=== PATIENT | female | born 1935 | race African-American/Black ===

== ENCOUNTER 2021-08-26 11:51 | Inpatient (IN) | payer MEDICARE, MEDICAID ==
[~2021-08-26] VITALS: Ht 162.6 cm; Wt 80.6 kg
[2021-08-26] MEDS ORDERED: SODIUM CHLORIDE 0.9% 1,000 ML IV ONE (12:00)
[2021-08-26] MEDS ORDERED: ONDANSETRON HCL 4 MG/2 ML VIAL ONE (12:48)
[2021-08-26] MEDS ORDERED: ONDANSETRON HCL 4 MG/2 ML VIAL IV ONE (13:00)
[2021-08-26 13:37] LABS: Basophils # (auto) 0 10 ^3/uL (0-0.2); Basophils % (auto) 0.4 % (0.0-2.0); Eosinophils # (auto) 0.1 10 ^3/uL (0-0.8); Monocytes # (auto) 0.4 10 ^3/uL (0-1.3)
[2021-08-26 13:38] LABS: Eosinophils % (auto) 0.9 % (0.0-7.0); Lymphocytes # (auto) 0.8 10 ^3/uL (0.4-5.4); Lymphocytes % (auto) 9.1 % (10.0-50.0); Mean Corpuscular Hemoglobin 28.9 pg (28.0-32.0); Mean Corpuscular Hgb Conc. 32.5 g/dL (32.0-36.0); Mean Corpuscular Volume 88.7 fL (80.0-100.0); Monocytes % (auto) 4.8 % (0.0-12.0); Neutrophils # (auto) 7.4 10 ^3/uL (1.6-8.6); Neutrophils % (auto) 84.8 % (37.0-80.0); Red Blood Cells 2.26 10^6/uL (4.0-5.20); Red Cell Distribution Width 16.5 % (11.8-14.3); White Blood Cell 8.7 10^3/uL (4.4-10.8)
[2021-08-26 14:10] LABS: Hemoglobin 6.5 g/dL (12.2-16.2)
[2021-08-26 14:42] LABS: Urine Bacteria MANY /hpf (None Seen); Urine Blood TRACE /uL (Negative); Urine Hyaline Cast FEW /lpf (0 - 2); Urine Mucus FEW (None Seen); Urine Specific Gravity 1.011 (1.001-1.035); Urine WBC 133 /hpf (0 - 5)
[2021-08-26] MEDS: PANTOPRAZOLE 40 MG/10 ML VIAL INJ IV SCH ×2 (15:24→23:28)
[2021-08-26] MEDS ORDERED: NITROGLYCERIN 0.4 MG SL TAB SL PRN ×2 (15:45→16:00)
[2021-08-26] MEDS ORDERED: MORPHINE SULFATE INJECTION 2 MG/ML SYRG IV PRN ×3 (15:45→16:00)
[2021-08-26] MEDS ORDERED: HYDROcodone-ACET 5/325MG TAB PO PRN (16:00)
[2021-08-26] MEDS ORDERED: ALUM & MAG HYDROX-SIMETH LIQ(MAALOX) 30 ML PO PRN (16:00)
[2021-08-26] MEDS ORDERED: DOCUSATE SOD 100 MG CAP PO PRN (16:00)
[2021-08-26] MEDS ORDERED: LORazepam 0.5 MG TAB PO PRN (16:00)
[2021-08-26] MEDS ORDERED: MEROPENEM 500MG IVPB 50 ML IV ONE (16:00)
[2021-08-26] MEDS: SODIUM CHLORIDE 0.9% 1,000 ML IV SCH (16:00)
[2021-08-26 16:31] LABS: Alcohol, Urine < 3.0 mg/dL (0-10); Amphetamine Screen, Urine NEGATIVE (NEGATIVE); Barbiturate Scree,Urine NEGATIVE (NEGATIVE); Benzodiazephine Screen, Urine NEGATIVE (NEGATIVE); Cannabinoid Screen, Urine NEGATIVE (NEGATIVE); Cocaine Screen, Urine NEGATIVE (NEGATIVE); Opiate Scree,Urine NEGATIVE (NEGATIVE); Phencyclidine Screen, Urine NEGATIVE (NEGATIVE)
[2021-08-26] MEDS: SUCRALFATE 1 GM/10 ML ORAL SUSP PO SCH ×2 (17:14→23:27)
[2021-08-26 18:31] LABS: Albumin 2.1 g/dL (3.4-5.0); Calcium 8.2 mg/dL (8.5-10.1); Potassium 3.7 mmol/L (3.5-5.1)
[2021-08-26 18:36] LABS: BUN/Creatinine Ratio 22.8; Bilirubin, Total 0.2 mg/dL (0.2-1.0)
[2021-08-26 18:38] LABS: INR 1.05 (0.9-1.15)
[2021-08-26] MEDS: ONDANSETRON HCL 4 MG/2 ML VIAL IV PRN (21:17)
[2021-08-27] VITALS (26 sets, daily range): BP systolic 99–157; BP diastolic 47–66
[2021-08-27] MEDS: SUCRALFATE 1 GM/10 ML ORAL SUSP PO SCH ×2 (06:51→11:30)
[2021-08-27] MEDS ORDERED: METO5TAB2 PO (08:07)
[2021-08-27] MEDS ORDERED: BACL10TA PO (08:07)
[2021-08-27] MEDS ORDERED: PANT40T PO (08:07)
[2021-08-27] MEDS ORDERED: AMLO-496 PO (08:07)
[2021-08-27] MEDS ORDERED: CLOP75TA70 PO (08:07)
[2021-08-27] MEDS ORDERED: FURO40TA4 PO (08:07)
[2021-08-27] MEDS ORDERED: ESCI-28 PO (08:07)
[2021-08-27] MEDS ORDERED: POTA-264 (08:07)
[2021-08-27] MEDS ORDERED: LABE100T4 PO (08:07)
[2021-08-27] MEDS ORDERED: ONDA-180 PO (08:07)
[2021-08-27] MEDS ORDERED: DONE1TAB88 PO (08:07)
[2021-08-27] MEDS ORDERED: GABA300C10 PO (08:07)
[2021-08-27] MEDS ORDERED: BUSP5TAB51 PO (08:07)
[2021-08-27 09:07] LABS: Basophils # (auto) 0 10 ^3/uL (0-0.2); Basophils % (auto) 0.6 % (0.0-2.0); Eosinophils # (auto) 0.1 10 ^3/uL (0-0.8); Eosinophils % (auto) 1.4 % (0.0-7.0); Hematocrit 23.5 % (36.0-46.0); Hemoglobin 7.8 g/dL (12.2-16.2); Lymphocytes # (auto) 1.1 10 ^3/uL (0.4-5.4); Lymphocytes % (auto) 14.6 % (10.0-50.0); Mean Corpuscular Hemoglobin 28.8 pg (28.0-32.0); Mean Corpuscular Hgb Conc. 33.3 g/dL (32.0-36.0); Mean Corpuscular Volume 86.5 fL (80.0-100.0); Monocytes # (auto) 0.5 10 ^3/uL (0-1.3); Monocytes % (auto) 6.6 % (0.0-12.0); Neutrophils # (auto) 5.7 10 ^3/uL (1.6-8.6); Neutrophils % (auto) 76.8 % (37.0-80.0); Nucleated Red Blood Cells % 0.1 %; Red Blood Cells 2.71 10^6/uL (4.0-5.20); Red Cell Distribution Width 15.8 % (11.8-14.3); White Blood Cell 7.4 10^3/uL (4.4-10.8)
[2021-08-27] MEDS ORDERED: LIDOCAINE VISCOUS 2% 15ML UD ONE (09:16)
[2021-08-27] MEDS ORDERED: diphenhdrAMINE HCL 50 MG/1 ML VL ONE (09:17)
[2021-08-27] MEDS ORDERED: fentaNYL CITRATE 100 MCG/2 ML VL ONE ×2 (09:17→14:45)
[2021-08-27] MEDS ORDERED: MIDAZOLAM HCL 5 MG/ML-1ML VIAL ONE (09:17)
[2021-08-27 09:27] LABS: Albumin 2.1 g/dL (3.4-5.0); Magnesium 2.5 mg/dL (1.6-2.6); Potassium 3.7 mmol/L (3.5-5.1)
[2021-08-27 09:33] LABS: BUN/Creatinine Ratio 22.2; Bilirubin, Total 0.3 mg/dL (0.2-1.0); Phosphorus 2.7 mg/dL (2.5-4.90); Total Protein 6.5 g/dL (6.4-8.2); Uric Acid 9.8 mg/dL (2.6-6.0)
[2021-08-27] MEDS: PANTOPRAZOLE 40 MG/10 ML VIAL INJ IV SCH ×2 (09:43→22:14)
[2021-08-27] MEDS: SODIUM CHLORIDE 0.9% 1,000 ML IV SCH (09:44)
[2021-08-27] MEDS ORDERED: MEROPENEM 1GM IVPB 100 ML IV SCH (10:00)
[2021-08-27 10:54] LABS: INR 1.05 (0.9-1.15); Partial Thromboplastin Time 26.9 sec (23.6-33.0)
[2021-08-27] MEDS: ONDANSETRON HCL 4 MG/2 ML VIAL IV PRN (11:15)
[2021-08-27] MEDS ORDERED: MIDAZOLAM HCL 2MG/2ML 2ml VIAL (1mg/ml) ONE ×2 (14:46→15:35)
[2021-08-27] MEDS ORDERED: DexAMETHasone SOD PHOS 10MG/1ML VIAL INJ ONE (15:10)
[2021-08-27] MEDS ORDERED: LIDOCAINE HCL 2% TOP JELLY 5ML TOP ONE (15:16)
[2021-08-27] MEDS ORDERED: GLYCOPYRROLATE 0.2 MG/ML 1ML VIAL ONE (15:16)
[2021-08-27] MEDS ORDERED: EPINEPHrine HCL 1 MG/1 ML AMP ONE (15:16)
[2021-08-27] MEDS ORDERED: LIDOCAINE 2%HCL (LOCAL ANESTH.) INJ 20ML MDV ONE (15:16)
[2021-08-27] MEDS ORDERED: PROPOFOL 10 MG/ML 20 ML IV ONE (15:34)
[2021-08-27] MEDS ORDERED: MIDAZOLAM DRIP 50 mg/50mL 50 ML IV ONE (16:01)
[2021-08-27] MEDS: MIDAZOLAM DRIP 50 mg/50mL 50 ML IV SCH (16:14)
[2021-08-27] MEDS ORDERED: CLINDAMYCIN 600MG IV 50 ML IV ONE (16:15)
[2021-08-27] MEDS ORDERED: PIPERACILLIN-TAZOB 3.375GM 100 ML IV ONE (16:15)
[2021-08-27] MEDS ORDERED: PIPERACILLIN-TAZOB 2.25GM 50 ML IV ONE (17:15)
[2021-08-27] MEDS: fentaNYL Drip 2500mCg/250mlNS 250 ML IV SCH (17:46)
[2021-08-27] MEDS ORDERED: PIPERACILLIN-TAZOB 3.375GM 100 ML IV SCH (22:00)
[2021-08-27] MEDS: CLINDAMYCIN 600MG IV 50 ML IV SCH (22:14)
[2021-08-28] VITALS (103 sets, daily range): BP systolic 73–150; BP diastolic 42–77
[2021-08-28] MEDS: SODIUM CHLORIDE 0.9% 1,000 ML IV SCH ×2 (01:32→17:11)
[2021-08-28 04:41] LABS: Hematocrit 25.4 % (36.0-46.0); Red Blood Cells 2.91 10^6/uL (4.0-5.20)
[2021-08-28 04:45] LABS: Hemoglobin 8.3 g/dL (12.2-16.2); Mean Corpuscular Hemoglobin 28.6 pg (28.0-32.0); Mean Corpuscular Hgb Conc. 32.7 g/dL (32.0-36.0); Mean Corpuscular Volume 87.4 fL (80.0-100.0); Red Cell Distribution Width 15.3 % (11.8-14.3); White Blood Cell 14.9 10^3/uL (4.4-10.8)
[2021-08-28 04:58] LABS: Basophils % (manual) 0 (0.0-2.0); Blast Cells 0; Eosinophils % (manual) 0 (0-7); Metamyelocytes % 0; Myelocytes % 0; Promyelocytes % 0; Reactive Lymphocytes 0
[2021-08-28 05:01] LABS: BUN/Creatinine Ratio 19.9; Calcium 7.6 mg/dL (8.5-10.1); Potassium 4.3 mmol/L (3.5-5.1)
[2021-08-28] MEDS: CLINDAMYCIN 600MG IV 50 ML IV SCH (05:38)
[2021-08-28 06:57] LABS: Band Neutrophils % (manual) 55; Lymphocytes % (manual) 4 (10.0-50.0); Monocytes % (manual) 1 (0-12)
[2021-08-28] MEDS: PANTOPRAZOLE 40 MG/10 ML VIAL INJ IV SCH ×2 (09:28→21:50)
[2021-08-28] MEDS: NOREPINEPHRINE 8 MG/250ML KIT 250 ML IV SCH (10:08)
[2021-08-28] MEDS ORDERED: MEROPENEM 1GM IVPB 100 ML IV ONE (11:30)
[2021-08-28] MEDS: MEROPENEM 500MG IVPB 50 ML IV SCH ×2 (11:57→13:57)
[2021-08-28] MEDS ORDERED: DIGOXIN (250MCG/ML) 2 ML AMPULE IV ONE ×2 (13:15)
[2021-08-28] MEDS ORDERED: MEROPENEM 1GM IVPB 100 ML IV SCH (14:00)
[2021-08-28] MEDS: fentaNYL Drip 2500mCg/250mlNS 250 ML IV SCH (16:00)
[2021-08-28] MEDS: MIDAZOLAM DRIP 50 mg/50mL 50 ML IV SCH (16:00)
[2021-08-28] MEDS ORDERED: AMIODARONE HCL 150 MG in D5W 5% 100 ML IV ONE (16:30)
[2021-08-28] MEDS ORDERED: AMIODARONE 450mg/250ml AE 250 ML IV ONE (16:45)
[2021-08-28] MEDS ORDERED: PIPERACILLIN-TAZOB 2.25GM 50 ML IV SCH (17:30)
[2021-08-29] VITALS (97 sets, daily range): BP systolic 88–185; BP diastolic 38–99
[2021-08-29] MEDS: AMIODARONE 450mg/250ml AE 250 ML IV SCH ×4 (02:15→17:15)
[2021-08-29] MEDS: ACETAMINOPHEN 325 MG TAB PO PRN ×2 (03:53→17:11)
[2021-08-29 04:42] LABS: Basophils # (auto) 0 10 ^3/uL (0-0.2); Basophils % (auto) 0.3 % (0.0-2.0); Eosinophils # (auto) 0 10 ^3/uL (0-0.8); Eosinophils % (auto) 0.1 % (0.0-7.0); Hemoglobin 7.2 g/dL (12.2-16.2); Lymphocytes # (auto) 0.6 10 ^3/uL (0.4-5.4); Lymphocytes % (auto) 6.9 % (10.0-50.0); Mean Corpuscular Hemoglobin 28.6 pg (28.0-32.0); Mean Corpuscular Hgb Conc. 32.8 g/dL (32.0-36.0); Mean Corpuscular Volume 87.4 fL (80.0-100.0); Monocytes # (auto) 0.3 10 ^3/uL (0-1.3); Monocytes % (auto) 3.7 % (0.0-12.0); Neutrophils # (auto) 7.7 10 ^3/uL (1.6-8.6); Nucleated Red Blood Cells % 0.1 %; Red Blood Cells 2.52 10^6/uL (4.0-5.20); Red Cell Distribution Width 16.3 % (11.8-14.3); White Blood Cell 8.7 10^3/uL (4.4-10.8)
[2021-08-29 05:07] LABS: Albumin 1.8 g/dL (3.4-5.0); BUN/Creatinine Ratio 19.1; Calcium 7.3 mg/dL (8.5-10.1); Potassium 4.1 mmol/L (3.5-5.1)
[2021-08-29 05:09] LABS: Bilirubin, Total 0.4 mg/dL (0.2-1.0); Total Protein 5.8 g/dL (6.4-8.2)
[2021-08-29] MEDS: SODIUM CHLORIDE 0.9% 1,000 ML IV SCH (08:30)
[2021-08-29] MEDS: NOREPINEPHRINE 8 MG/250ML KIT 250 ML IV SCH (09:45)
[2021-08-29] MEDS: PANTOPRAZOLE 40 MG/10 ML VIAL INJ IV SCH ×2 (09:55→22:10)
[2021-08-29] MEDS: MEROPENEM 500MG IVPB 50 ML IV SCH ×2 (10:33→22:10)
[2021-08-29] MEDS: MIDAZOLAM DRIP 50 mg/50mL 50 ML IV SCH (16:00)
[2021-08-29] MEDS: fentaNYL Drip 2500mCg/250mlNS 250 ML IV SCH ×2 (16:00→22:20)
[2021-08-29] MEDS ORDERED: FLUCONAZOLE 200MG/100ML 100 ML IV ONE (16:30)
[2021-08-29] MEDS ORDERED: MICAFUNGIN SODIUM 100 MG in SODIUM CHL 0.9% 100 ML IV ONE (17:30)
[2021-08-29] MEDS: LEVALBUTEROL HCL 1.25 MG/3 ML NEB NEB SCH (18:23)
[2021-08-29] MEDS: hydrALAZINE HCL 20 MG/ML VL IV PRN (23:30)
[2021-08-30] VITALS (102 sets, daily range): BP systolic 130–189; BP diastolic 24–91
[2021-08-30] MEDS: hydrALAZINE HCL 20 MG/ML VL IV PRN ×2 (00:56→18:31)
[2021-08-30] MEDS: MORPHINE SULFATE INJECTION 2 MG/ML SYRG IV PRN (04:28)
[2021-08-30 05:06] LABS: Basophils # (auto) 0.1 10 ^3/uL (0-0.2); Eosinophils # (auto) 0.1 10 ^3/uL (0-0.8); Lymphocytes # (auto) 0.7 10 ^3/uL (0.4-5.4); Monocytes # (auto) 0.5 10 ^3/uL (0-1.3); Nucleated Red Blood Cells % 0.1 %
[2021-08-30 05:07] LABS: Basophils % (auto) 0.5 % (0.0-2.0); Eosinophils % (auto) 0.8 % (0.0-7.0); Hematocrit 25.6 % (36.0-46.0); Hemoglobin 8.2 g/dL (12.2-16.2); Lymphocytes % (auto) 6.3 % (10.0-50.0); Mean Corpuscular Hemoglobin 28.2 pg (28.0-32.0); Mean Corpuscular Volume 88.2 fL (80.0-100.0); Neutrophils # (auto) 10.5 10 ^3/uL (1.6-8.6); Neutrophils % (auto) 88.4 % (37.0-80.0); Red Cell Distribution Width 16.5 % (11.8-14.3); White Blood Cell 11.9 10^3/uL (4.4-10.8)
[2021-08-30 05:28] LABS: Calcium 8.1 mg/dL (8.5-10.1); Potassium 3.7 mmol/L (3.5-5.1)
[2021-08-30 05:30] LABS: BUN/Creatinine Ratio 21.5
[2021-08-30] MEDS: LEVALBUTEROL HCL 1.25 MG/3 ML NEB NEB SCH ×4 (06:32→18:05)
[2021-08-30] MEDS: NOREPINEPHRINE 8 MG/250ML KIT 250 ML IV SCH (09:45)
[2021-08-30] MEDS: MICAFUNGIN SODIUM 100 MG in SODIUM CHL 0.9% 100 ML IV SCH (09:47)
[2021-08-30] MEDS: MEROPENEM 500MG IVPB 50 ML IV SCH (09:47)
[2021-08-30] MEDS: PANTOPRAZOLE 40 MG/10 ML VIAL INJ IV SCH ×2 (09:48→21:42)
[2021-08-30] MEDS ORDERED: FUROSEMIDE 20 MG/2 ML VIAL IV ONE (11:45)
[2021-08-30] MEDS ORDERED: FUROSEMIDE 20 MG/2 ML VIAL ONE (11:47)
[2021-08-30 14:40] LABS: % Iron Saturation 5.5 % (15-50)
[2021-08-30] MEDS: MIDAZOLAM DRIP 50 mg/50mL 50 ML IV SCH (16:00)
[2021-08-30 16:26] LABS: Urine Bacteria FEW /hpf (None Seen); Urine Blood TRACE /uL (Negative); Urine Mucus FEW (None Seen); Urine WBC 3 /hpf (0 - 5)
[2021-08-30 16:38] LABS: Protein, Urine 115.8 mg/dL (0.0-11.9)
[2021-08-30] MEDS ORDERED: FLUCONAZOLE 200MG/100ML 100 ML IV SCH (18:00)
[2021-08-30] MEDS: MEROPENEM 1GM IVPB 100 ML IV SCH (18:31)
[2021-08-30] MEDS ORDERED: AMIODARONE HCL 150 MG in D5W 5% 100 ML IV ONE (23:15)
[2021-08-30] MEDS ORDERED: AMIODARONE 450mg/250ml AE 250 ML IV SCH (23:30)
[2021-08-30] MEDS ORDERED: AMIODARONE HCL (50 MG/ ML) 3 ML VIAL IV ONE (23:31)
[2021-08-31] VITALS (57 sets, daily range): BP systolic 148–195; BP diastolic 56–94
[2021-08-31 03:50] LABS: Basophils # (auto) 0 10 ^3/uL (0-0.2); Basophils % (auto) 0.5 % (0.0-2.0); Eosinophils # (auto) 0.1 10 ^3/uL (0-0.8); Eosinophils % (auto) 1.3 % (0.0-7.0); Hematocrit 23.9 % (36.0-46.0); Hemoglobin 7.5 g/dL (12.2-16.2); Lymphocytes # (auto) 0.8 10 ^3/uL (0.4-5.4); Lymphocytes % (auto) 11.7 % (10.0-50.0); Mean Corpuscular Hemoglobin 28.3 pg (28.0-32.0); Mean Corpuscular Hgb Conc. 31.5 g/dL (32.0-36.0); Mean Corpuscular Volume 89.7 fL (80.0-100.0); Monocytes # (auto) 0.6 10 ^3/uL (0-1.3); Monocytes % (auto) 9.1 % (0.0-12.0); Neutrophils # (auto) 5.4 10 ^3/uL (1.6-8.6); Neutrophils % (auto) 77.4 % (37.0-80.0); Nucleated Red Blood Cells % 0.1 %; Red Blood Cells 2.67 10^6/uL (4.0-5.20); Red Cell Distribution Width 16.3 % (11.8-14.3); White Blood Cell 6.9 10^3/uL (4.4-10.8)
[2021-08-31 04:12] LABS: BUN/Creatinine Ratio 20.8; Potassium 3.6 mmol/L (3.5-5.1)
[2021-08-31] MEDS ORDERED: AMIODARONE 450mg/250ml AE 250 ML IV SCH (05:30)
[2021-08-31] MEDS: hydrALAZINE HCL 20 MG/ML VL IV PRN ×4 (05:39→23:46)
[2021-08-31] MEDS: NOREPINEPHRINE 8 MG/250ML KIT 250 ML IV SCH (09:45)
[2021-08-31] MEDS: MEROPENEM 1GM IVPB 100 ML IV SCH ×2 (09:58→18:40)
[2021-08-31] MEDS: PANTOPRAZOLE 40 MG/10 ML VIAL INJ IV SCH ×2 (10:39→21:38)
[2021-08-31] MEDS: AMIODARONE HCL 200 MG TAB NG SCH ×2 (10:40→22:00)
[2021-08-31] MEDS: VALSARTAN 80 MG TAB NG SCH (10:40)
[2021-08-31] MEDS: MICAFUNGIN SODIUM 100 MG in SODIUM CHL 0.9% 100 ML IV SCH (11:00)
[2021-08-31 12:18] LABS: Hematocrit 24.3 % (36.0-46.0)
[2021-08-31] MEDS: ONDANSETRON HCL 4 MG/2 ML VIAL IV PRN ×3 (12:26→21:39)
[2021-08-31] MEDS: LEVALBUTEROL HCL 1.25 MG/3 ML NEB NEB SCH ×3 (15:53→18:29)
[2021-08-31] MEDS: fentaNYL Drip 2500mCg/250mlNS 250 ML IV SCH (16:00)
[2021-08-31] MEDS: MIDAZOLAM DRIP 50 mg/50mL 50 ML IV SCH (16:00)
[2021-08-31] MEDS: cloNIDine HCL 0.1 MG TAB PO PRN (16:08)
[2021-08-31 17:22] LABS: Hematocrit 25.4 % (36.0-46.0); Hemoglobin 8.3 g/dL (12.2-16.2)
[2021-08-31 23:24] LABS: Hematocrit 24.7 % (36.0-46.0)
[2021-09-01] VITALS (35 sets, daily range): BP systolic 137–188; BP diastolic 57–86
[2021-09-01] MEDS: InsuLIN REG 1unit/0.01ml Soln (100units/ml) SC SCH
[2021-09-01] MEDS: LEVALBUTEROL HCL 1.25 MG/3 ML NEB NEB SCH ×4 (00:22→19:07)
[2021-09-01 04:02] LABS: Basophils # (auto) 0 10 ^3/uL (0-0.2); Eosinophils # (auto) 0 10 ^3/uL (0-0.8); Monocytes % (auto) 8.4 % (0.0-12.0)
[2021-09-01 04:05] LABS: Basophils % (auto) 0.2 % (0.0-2.0); Eosinophils % (auto) 0.3 % (0.0-7.0); Hematocrit 23.2 % (36.0-46.0); Hemoglobin 7.8 g/dL (12.2-16.2); Lymphocytes # (auto) 0.6 10 ^3/uL (0.4-5.4); Mean Corpuscular Hemoglobin 29.6 pg (28.0-32.0); Mean Corpuscular Hgb Conc. 33.8 g/dL (32.0-36.0); Mean Corpuscular Volume 87.5 fL (80.0-100.0); Monocytes # (auto) 0.7 10 ^3/uL (0-1.3); Neutrophils # (auto) 6.5 10 ^3/uL (1.6-8.6); Neutrophils % (auto) 83.1 % (37.0-80.0); Nucleated Red Blood Cells % 0.1 %; Red Blood Cells 2.65 10^6/uL (4.0-5.20); Red Cell Distribution Width 15.8 % (11.8-14.3); White Blood Cell 7.8 10^3/uL (4.4-10.8)
[2021-09-01 04:25] LABS: Potassium 3.3 mmol/L (3.5-5.1)
[2021-09-01 04:34] LABS: Albumin 2.2 g/dL (3.4-5.0); BUN/Creatinine Ratio 19.7; Bilirubin, Total 0.4 mg/dL (0.2-1.0); Calcium 8.5 mg/dL (8.5-10.1); Total Protein 6.8 g/dL (6.4-8.2)
[2021-09-01] MEDS: MEROPENEM 1GM IVPB 100 ML IV SCH ×2 (06:31→17:34)
[2021-09-01] MEDS: hydrALAZINE HCL 20 MG/ML VL IV PRN ×3 (06:32→17:39)
[2021-09-01] MEDS: ONDANSETRON HCL 4 MG/2 ML VIAL IV PRN (07:36)
[2021-09-01] MEDS: NOREPINEPHRINE 8 MG/250ML KIT 250 ML IV SCH (09:12)
[2021-09-01] MEDS: AMIODARONE HCL 200 MG TAB NG SCH ×2 (09:13→22:00)
[2021-09-01] MEDS: VALSARTAN 80 MG TAB NG SCH (09:13)
[2021-09-01] MEDS: PANTOPRAZOLE 40 MG/10 ML VIAL INJ IV SCH ×2 (09:16→22:00)
[2021-09-01] MEDS ORDERED: LABETALOL HCL 5 MG/ML 4ML SYRINGE IV PRN (09:45)
[2021-09-01] MEDS: POTASSIUM CHL 20MEQ/100ML 100 ML IV SCH ×2 (10:00→14:18)
[2021-09-01] MEDS: MICAFUNGIN SODIUM 100 MG in SODIUM CHL 0.9% 100 ML IV SCH (10:30)
[2021-09-01] MEDS ORDERED: METOCLOPRAMIDE HCL 5MG/ml INJ 2ml VIAL IV ONE (11:45)
[2021-09-01 13:00] LABS: Phosphorus 3.1 mg/dL (2.5-4.90)
[2021-09-01 13:03] LABS: Pre Albumin 6.3 mg/dL (20.0-40.0)
[2021-09-01] MEDS ORDERED: D5W 5% 1,000 ML IV ONE (13:45)
[2021-09-01] MEDS: MIDAZOLAM DRIP 50 mg/50mL 50 ML IV SCH (16:00)
[2021-09-01] MEDS: fentaNYL Drip 2500mCg/250mlNS 250 ML IV SCH (16:00)
[2021-09-01] MEDS: cloNIDine HCL 0.1 MG TAB PO PRN ×2 (16:22→23:54)
[2021-09-01] MEDS ORDERED: AMINO ACID INFUSION IN D10W 1,000 ML IV NR (20:00)
[2021-09-01] MEDS ORDERED: CLINIMIX PER PHARMACY 0 ML IV SCH (20:00)
[2021-09-01] MEDS: METOCLOPRAMIDE HCL 5MG/ml INJ 2ml VIAL IV SCH (22:00)
[2021-09-02] VITALS (23 sets, daily range): BP systolic 155–193; BP diastolic 62–80
[2021-09-02] MEDS ORDERED: DEXTROSE (50%) 50ML SYRG IV SCH
[2021-09-02] MEDS: LEVALBUTEROL HCL 1.25 MG/3 ML NEB NEB SCH ×4 (00:50→18:21)
[2021-09-02 03:56] LABS: Basophils # (auto) 0 10 ^3/uL (0-0.2); Eosinophils # (auto) 0.1 10 ^3/uL (0-0.8); Eosinophils % (auto) 1.3 % (0.0-7.0); Hematocrit 24.8 % (36.0-46.0); Monocytes # (auto) 0.8 10 ^3/uL (0-1.3); Nucleated Red Blood Cells % 0.1 %
[2021-09-02 03:58] LABS: Basophils % (auto) 0.4 % (0.0-2.0); Hemoglobin 7.9 g/dL (12.2-16.2); Lymphocytes # (auto) 1.1 10 ^3/uL (0.4-5.4); Mean Corpuscular Hemoglobin 28.1 pg (28.0-32.0); Mean Corpuscular Hgb Conc. 31.7 g/dL (32.0-36.0); Mean Corpuscular Volume 88.8 fL (80.0-100.0); Monocytes % (auto) 8.6 % (0.0-12.0); Neutrophils % (auto) 77.7 % (37.0-80.0); Red Blood Cells 2.79 10^6/uL (4.0-5.20); Red Cell Distribution Width 16.2 % (11.8-14.3)
[2021-09-02 04:37] LABS: Albumin 2.3 g/dL (3.4-5.0); BUN/Creatinine Ratio 17.7; Calcium 8.7 mg/dL (8.5-10.1); Potassium 3.5 mmol/L (3.5-5.1)
[2021-09-02 04:39] LABS: Bilirubin, Total 0.3 mg/dL (0.2-1.0); Total Protein 6.9 g/dL (6.4-8.2)
[2021-09-02] MEDS: InsuLIN REG 1unit/0.01ml Soln (100units/ml) SC SCH ×3 (06:00→18:00)
[2021-09-02] MEDS: MEROPENEM 1GM IVPB 100 ML IV SCH ×2 (06:00→17:44)
[2021-09-02] MEDS: ACCU-CHEK COMFORT CURVE STRIP VI SCH ×4 (06:22→17:44)
[2021-09-02] MEDS ORDERED: NIFEdipine ER 30 MG TAB PO ONE (08:15)
[2021-09-02] MEDS: AMIODARONE HCL 200 MG TAB NG SCH ×2 (08:45→20:00)
[2021-09-02 09:00] LABS: Magnesium 1.8 mg/dL (1.6-2.6)
[2021-09-02] MEDS: NOREPINEPHRINE 8 MG/250ML KIT 250 ML IV SCH (09:45)
[2021-09-02] MEDS: VALSARTAN 80 MG TAB NG SCH (10:35)
[2021-09-02 10:44] LABS: INR 1.08 (0.9-1.15)
[2021-09-02] MEDS: hydrALAZINE HCL 20 MG/ML VL IV PRN ×2 (11:19→16:29)
[2021-09-02] MEDS: METOCLOPRAMIDE HCL 5MG/ml INJ 2ml VIAL IV SCH (12:04)
[2021-09-02] MEDS: PANTOPRAZOLE 40 MG/10 ML VIAL INJ IV SCH ×2 (12:04→22:22)
[2021-09-02] MEDS: MICAFUNGIN SODIUM 100 MG in SODIUM CHL 0.9% 100 ML IV SCH (12:06)
[2021-09-02] MEDS ORDERED: POTASSIUM PHOSPHATE 44 MEQ in D5W 5% 250 ML IV ONE (12:15)
[2021-09-02] MEDS ORDERED: PANT1INJ3 PO (12:35)
[2021-09-02] MEDS ORDERED: ASCO500T11 PO (12:43)
[2021-09-02] MEDS ORDERED: CHOL400C15 PO (12:43)
[2021-09-02] MEDS ORDERED: GABA-339 PO (12:43)
[2021-09-02] MEDS ORDERED: ZINC220C8 PO (12:43)
[2021-09-02] MEDS ORDERED: MAGN400T28 PO (12:43)
[2021-09-02] MEDS ORDERED: ASPI-543 PO (12:43)
[2021-09-02] MEDS ORDERED: LABE100T4 PO (12:43)
[2021-09-02] MEDS ORDERED: cloNIDine 0.2 mg/24hr 7DAY PATCH TD ONE (12:45)
[2021-09-02] MEDS ORDERED: cloNIDine 0.2 mg/24hr 7DAY PATCH TD SCH (12:45)
[2021-09-02] MEDS ORDERED: ENOXAPARIN SOD 40 MG/0.4 ML SYRINGE SC ONE (12:45)
[2021-09-02] MEDS ORDERED: BISACODYL 10 MG RECT SUPP PR PRN (15:00)
[2021-09-02] MEDS: fentaNYL Drip 2500mCg/250mlNS 250 ML IV SCH (16:00)
[2021-09-03] VITALS (11 sets, daily range): BP systolic 155–177; BP diastolic 67–78
[2021-09-03] MEDS: LEVALBUTEROL HCL 1.25 MG/3 ML NEB NEB SCH ×4 (00:21→19:09)
[2021-09-03 02:43] LABS: Basophils # (auto) 0 10 ^3/uL (0-0.2); Eosinophils # (auto) 0.1 10 ^3/uL (0-0.8); Monocytes # (auto) 0.6 10 ^3/uL (0-1.3); Neutrophils # (auto) 6.6 10 ^3/uL (1.6-8.6); White Blood Cell 8.3 10^3/uL (4.4-10.8)
[2021-09-03 02:45] LABS: Basophils % (auto) 0.4 % (0.0-2.0); Eosinophils % (auto) 1.4 % (0.0-7.0); Hematocrit 23.5 % (36.0-46.0); Hemoglobin 7.5 g/dL (12.2-16.2); Lymphocytes # (auto) 0.9 10 ^3/uL (0.4-5.4); Lymphocytes % (auto) 11.1 % (10.0-50.0); Mean Corpuscular Hemoglobin 27.8 pg (28.0-32.0); Mean Corpuscular Volume 86.7 fL (80.0-100.0); Monocytes % (auto) 7.5 % (0.0-12.0); Neutrophils % (auto) 79.6 % (37.0-80.0); Red Blood Cells 2.71 10^6/uL (4.0-5.20); Red Cell Distribution Width 16.3 % (11.8-14.3)
[2021-09-03 03:04] LABS: BUN/Creatinine Ratio 14.9; Calcium 8.5 mg/dL (8.5-10.1); Potassium 3.6 mmol/L (3.5-5.1)
[2021-09-03] MEDS: MEROPENEM 1GM IVPB 100 ML IV SCH ×2 (06:00→17:34)
[2021-09-03] MEDS: AMIODARONE HCL 200 MG TAB NG SCH ×2 (07:44→20:57)
[2021-09-03] MEDS ORDERED: TPN PER PHARMACY 0 ML IV SCH (10:00)
[2021-09-03 10:38] LABS: Albumin 2.3 g/dL (3.4-5.0); Bilirubin, Direct 0.2 mg/dL (0-0.2)
[2021-09-03 10:45] LABS: Bilirubin, Total 0.4 mg/dL (0.2-1.0); Phosphorus 3.3 mg/dL (2.5-4.90); Pre Albumin 8.7 mg/dL (20.0-40.0); Total Protein 6.8 g/dL (6.4-8.2)
[2021-09-03] MEDS: FLUCONAZOLE 200MG/100ML 100 ML IV SCH (11:33)
[2021-09-03] MEDS: PANTOPRAZOLE 40 MG/10 ML VIAL INJ IV SCH ×2 (11:34→23:42)
[2021-09-03] MEDS: ENOXAPARIN SOD 40 MG/0.4 ML SYRINGE SC SCH (11:35)
[2021-09-03] MEDS: VALSARTAN 80 MG TAB NG SCH (11:36)
[2021-09-03] MEDS: ONDANSETRON HCL 4 MG/2 ML VIAL IV PRN (14:49)
[2021-09-03] MEDS ORDERED: PPN PER PHARMACY IV NR ×7 (20:00)
[2021-09-03] MEDS: hydrALAZINE HCL 20 MG/ML VL IV PRN (21:45)
[2021-09-03] MEDS: ACCU-CHEK COMFORT CURVE STRIP VI SCH (23:42)
[2021-09-03] MEDS: InsuLIN REG 1unit/0.01ml Soln (100units/ml) SC SCH (23:43)
[2021-09-04] MEDS ORDERED: DEXTROSE (50%) 50ML SYRG IV SCH
[2021-09-04] MEDS: LEVALBUTEROL HCL 1.25 MG/3 ML NEB NEB SCH ×5 (00:07→23:50)
[2021-09-04 05:00] VITALS: BP 165/74
[2021-09-04] MEDS: hydrALAZINE HCL 20 MG/ML VL IV PRN (05:28)
[2021-09-04] MEDS: InsuLIN REG 1unit/0.01ml Soln (100units/ml) SC SCH ×3 (06:00→18:00)
[2021-09-04] MEDS: MEROPENEM 1GM IVPB 100 ML IV SCH ×2 (06:22→18:12)
[2021-09-04] MEDS: ACCU-CHEK COMFORT CURVE STRIP VI SCH ×3 (06:23→18:16)
[2021-09-04] MEDS: AMIODARONE HCL 200 MG TAB NG SCH ×2 (08:30→20:44)
[2021-09-04] MEDS: LABETALOL HCL 5 MG/ML 4ML SYRINGE IV PRN ×2 (08:48→18:24)
[2021-09-04 09:00] VITALS: BP 156/77
[2021-09-04] MEDS: PANTOPRAZOLE 40 MG/10 ML VIAL INJ IV SCH ×2 (10:35→23:02)
[2021-09-04] MEDS: VALSARTAN 80 MG TAB NG SCH (10:35)
[2021-09-04] MEDS: ENOXAPARIN SOD 40 MG/0.4 ML SYRINGE SC SCH (10:35)
[2021-09-04] MEDS: FLUCONAZOLE 200MG/100ML 100 ML IV SCH (10:35)
[2021-09-04 12:59] VITALS: BP 162/74
[2021-09-04] MEDS ORDERED: GADOTERATE MEG 7.5 MMOL/15ml INJ (0.5MMOL/ml) IV ONE (15:35)
[2021-09-04 15:52] LABS: Albumin 2.5 g/dL (3.4-5.0); Calcium 9.1 mg/dL (8.5-10.1); Potassium 3.7 mmol/L (3.5-5.1)
[2021-09-04 15:55] LABS: BUN/Creatinine Ratio 20.8; Bilirubin, Total 0.4 mg/dL (0.2-1.0); Phosphorus 3.1 mg/dL (2.5-4.90); Total Protein 7.7 g/dL (6.4-8.2)
[2021-09-04 17:14] VITALS: BP 179/78
[2021-09-04] MEDS ORDERED: PPN PER PHARMACY IV NR ×5 (20:00)
[2021-09-04 22:00] VITALS: BP 152/71
[2021-09-05] MEDS: ACCU-CHEK COMFORT CURVE STRIP VI SCH ×4 (00:08→17:22)
[2021-09-05] MEDS: InsuLIN REG 1unit/0.01ml Soln (100units/ml) SC SCH ×5 (00:20→23:59)
[2021-09-05 05:00] VITALS: BP 151/88
[2021-09-05] MEDS: MEROPENEM 1GM IVPB 100 ML IV SCH ×3 (05:18→17:39)
[2021-09-05 05:26] LABS: Basophils # (auto) 0 10 ^3/uL (0-0.2); Eosinophils # (auto) 0.2 10 ^3/uL (0-0.8); Nucleated Red Blood Cells % 0.1 %
[2021-09-05 05:31] LABS: Basophils % (auto) 0.6 % (0.0-2.0); Hematocrit 24.2 % (36.0-46.0); Hemoglobin 8.1 g/dL (12.2-16.2); Lymphocytes # (auto) 1.1 10 ^3/uL (0.4-5.4); Lymphocytes % (auto) 13.3 % (10.0-50.0); Mean Corpuscular Hemoglobin 28.8 pg (28.0-32.0); Mean Corpuscular Hgb Conc. 33.3 g/dL (32.0-36.0); Mean Corpuscular Volume 86.4 fL (80.0-100.0); Monocytes # (auto) 0.4 10 ^3/uL (0-1.3); Monocytes % (auto) 5.6 % (0.0-12.0); Neutrophils # (auto) 6.3 10 ^3/uL (1.6-8.6); Neutrophils % (auto) 78.5 % (37.0-80.0); Red Cell Distribution Width 15.9 % (11.8-14.3)
[2021-09-05 06:08] LABS: Albumin 2.3 g/dL (3.4-5.0); Potassium 3.5 mmol/L (3.5-5.1)
[2021-09-05 06:12] LABS: Bilirubin, Total 0.3 mg/dL (0.2-1.0); Calcium 8.8 mg/dL (8.5-10.1); Magnesium 2.9 mg/dL (1.6-2.6); Phosphorus 2.8 mg/dL (2.5-4.90); Total Protein 7.2 g/dL (6.4-8.2)
[2021-09-05] MEDS: LEVALBUTEROL HCL 1.25 MG/3 ML NEB NEB SCH ×4 (07:38→23:23)
[2021-09-05 09:00] VITALS: BP 161/65
[2021-09-05] MEDS: AMIODARONE HCL 200 MG TAB NG SCH ×2 (09:26→22:22)
[2021-09-05] MEDS: PANTOPRAZOLE 40 MG/10 ML VIAL INJ IV SCH ×2 (09:27→22:22)
[2021-09-05] MEDS: FLUCONAZOLE 200MG/100ML 100 ML IV SCH (09:27)
[2021-09-05] MEDS: ENOXAPARIN SOD 40 MG/0.4 ML SYRINGE SC SCH (09:28)
[2021-09-05] MEDS: VALSARTAN 80 MG TAB NG SCH (09:28)
[2021-09-05] MEDS ORDERED: cloNIDine 0.3 mg/24hr 7DAY PATCH TD SCH (10:00)
[2021-09-05 13:00] VITALS: BP 167/60
[2021-09-05] MEDS: hydrALAZINE HCL 20 MG/ML VL IV PRN (13:19)
[2021-09-05 15:15] VITALS: BP 142/59
[2021-09-05] MEDS ORDERED: FUROSEMIDE 20 MG/2 ML VIAL IV ONE (16:00)
[2021-09-05 17:00] VITALS: BP 161/60
[2021-09-05] MEDS ORDERED: PPN PER PHARMACY IV NR ×5 (20:00)
[2021-09-05] MEDS: PPN PER PHARMACY IV NR ×5 (21:17)
[2021-09-05 22:08] VITALS: BP 162/71
[2021-09-06 05:49] VITALS: BP 173/75
[2021-09-06] MEDS: ACCU-CHEK COMFORT CURVE STRIP VI SCH ×4 (06:55→17:24)
[2021-09-06] MEDS: MEROPENEM 1GM IVPB 100 ML IV SCH ×2 (06:55→17:24)
[2021-09-06] MEDS: InsuLIN REG 1unit/0.01ml Soln (100units/ml) SC SCH ×3 (06:56→17:23)
[2021-09-06] MEDS: ENOXAPARIN SOD 40 MG/0.4 ML SYRINGE SC SCH (07:44)
[2021-09-06 08:10] LABS: Basophils # (auto) 0.1 10 ^3/uL (0-0.2); Basophils % (auto) 0.8 % (0.0-2.0); Eosinophils # (auto) 0.1 10 ^3/uL (0-0.8); Eosinophils % (auto) 1.2 % (0.0-7.0); Hematocrit 26.9 % (36.0-46.0); Hemoglobin 8.6 g/dL (12.2-16.2); Lymphocytes # (auto) 0.9 10 ^3/uL (0.4-5.4); Lymphocytes % (auto) 11.6 % (10.0-50.0); Mean Corpuscular Hemoglobin 27.5 pg (28.0-32.0); Mean Corpuscular Hgb Conc. 31.9 g/dL (32.0-36.0); Mean Corpuscular Volume 86.3 fL (80.0-100.0); Monocytes # (auto) 0.5 10 ^3/uL (0-1.3); Monocytes % (auto) 6.2 % (0.0-12.0); Neutrophils # (auto) 6.6 10 ^3/uL (1.6-8.6); Neutrophils % (auto) 80.2 % (37.0-80.0); Nucleated Red Blood Cells % 0.1 %; Red Blood Cells 3.12 10^6/uL (4.0-5.20); Red Cell Distribution Width 15.9 % (11.8-14.3); White Blood Cell 8.2 10^3/uL (4.4-10.8)
[2021-09-06] MEDS: LEVALBUTEROL HCL 1.25 MG/3 ML NEB NEB SCH ×5 (08:31→23:23)
[2021-09-06] MEDS: VALSARTAN 80 MG TAB NG SCH (08:31)
[2021-09-06] MEDS: FLUCONAZOLE 200MG/100ML 100 ML IV SCH (08:31)
[2021-09-06] MEDS: PANTOPRAZOLE 40 MG/10 ML VIAL INJ IV SCH (08:31)
[2021-09-06] MEDS: AMIODARONE HCL 200 MG TAB NG SCH (08:32)
[2021-09-06 08:50] LABS: Albumin 2.5 g/dL (3.4-5.0); Calcium 8.8 mg/dL (8.5-10.1); Magnesium 2.7 mg/dL (1.6-2.6)
[2021-09-06 08:53] LABS: BUN/Creatinine Ratio 27.7; Bilirubin, Total 0.4 mg/dL (0.2-1.0); Phosphorus 2.4 mg/dL (2.5-4.90); Total Protein 7.8 g/dL (6.4-8.2)
[2021-09-06 09:00] VITALS: BP 157/76
[2021-09-06] MEDS ORDERED: POTASSIUM CHL 20MEQ/100ML 100 ML IV SCH (10:30)
[2021-09-06] MEDS: POTASSIUM CHL 20MEQ/100ML 100 ML IV SCH ×2 (10:51→12:24)
[2021-09-06 13:00] VITALS: BP 163/71
[2021-09-06] MEDS ORDERED: POTASSIUM PHOSPHATE 11 MEQ in SODIUM CHL 0.9% 100 ML IV ONE (15:00)
[2021-09-06] MEDS: PPN PER PHARMACY IV NR ×5 (19:54)
[2021-09-06] MEDS ORDERED: PPN PER PHARMACY IV NR ×7 (20:00)
[2021-09-06 22:00] VITALS: BP 172/75
[2021-09-07] MEDS: AMIODARONE HCL 200 MG TAB NG SCH (00:22)
[2021-09-07] MEDS: PANTOPRAZOLE 40 MG/10 ML VIAL INJ IV SCH ×2 (00:22→12:19)
[2021-09-07] MEDS: ACCU-CHEK COMFORT CURVE STRIP VI SCH ×4 (00:24→17:52)
[2021-09-07 05:00] VITALS: BP 177/69
[2021-09-07 05:43] LABS: Eosinophils # (auto) 0.1 10 ^3/uL (0-0.8); Eosinophils % (auto) 1.1 % (0.0-7.0); Hemoglobin 8.1 g/dL (12.2-16.2); Neutrophils # (auto) 6.3 10 ^3/uL (1.6-8.6)
[2021-09-07 05:47] LABS: Basophils # (auto) 0.1 10 ^3/uL (0-0.2); Basophils % (auto) 0.7 % (0.0-2.0); Hematocrit 24.8 % (36.0-46.0); Lymphocytes # (auto) 0.8 10 ^3/uL (0.4-5.4); Lymphocytes % (auto) 10.6 % (10.0-50.0); Mean Corpuscular Hgb Conc. 32.7 g/dL (32.0-36.0); Mean Corpuscular Volume 85.5 fL (80.0-100.0); Monocytes # (auto) 0.5 10 ^3/uL (0-1.3); Neutrophils % (auto) 80.6 % (37.0-80.0); Nucleated Red Blood Cells % 0.1 %; White Blood Cell 7.8 10^3/uL (4.4-10.8)
[2021-09-07 05:50] LABS: Albumin 2.2 g/dL (3.4-5.0); Calcium 8.3 mg/dL (8.5-10.1); Magnesium 1.8 mg/dL (1.6-2.6); Potassium 3.6 mmol/L (3.5-5.1)
[2021-09-07 05:53] LABS: Bilirubin, Total 0.3 mg/dL (0.2-1.0); Total Protein 7.2 g/dL (6.4-8.2)
[2021-09-07] MEDS: MEROPENEM 1GM IVPB 100 ML IV SCH ×2 (06:00→17:52)
[2021-09-07] MEDS: InsuLIN REG 1unit/0.01ml Soln (100units/ml) SC SCH ×4 (06:00→18:00)
[2021-09-07] MEDS: LEVALBUTEROL HCL 1.25 MG/3 ML NEB NEB SCH ×3 (07:23→17:50)
[2021-09-07] MEDS ORDERED: BUPIVACAINE W/ EPINEPH 0.25% INJ 50ML MDV ONE (08:27)
[2021-09-07] MEDS ORDERED: fentaNYL CITRATE 100 MCG/2 ML VL ONE (08:35)
[2021-09-07] MEDS ORDERED: LIDOCAINE 1% HCL (LOCAL ANESTH.) INJ 20ML MDV ONE (08:40)
[2021-09-07] MEDS ORDERED: PROPOFOL 10 MG/ML 20 ML IV ONE (09:45)
[2021-09-07] MEDS ORDERED: ONDANSETRON HCL 4 MG/2 ML VIAL ONE (09:45)
[2021-09-07] MEDS: hydrALAZINE HCL 20 MG/ML VL IV PRN (10:10)
[2021-09-07] MEDS ORDERED: hydrALAZINE HCL 20 MG/ML VL IV ONE (10:30)
[2021-09-07] MEDS: FLUCONAZOLE 200MG/100ML 100 ML IV SCH (12:19)
[2021-09-07] MEDS: VALSARTAN 80 MG TAB NG SCH (12:20)
[2021-09-07] MEDS: ENOXAPARIN SOD 40 MG/0.4 ML SYRINGE SC SCH (12:20)
[2021-09-07 13:00] VITALS: BP 171/74
[2021-09-07] MEDS: LABETALOL HCL 5 MG/ML 4ML SYRINGE IV PRN (13:24)
[2021-09-07] MEDS: ONDANSETRON HCL 4 MG/2 ML VIAL IV PRN (13:25)
[2021-09-07] MEDS ORDERED: KETOROLAC TROMETH 30 MG/ML 1ML VIAL IV ONE (16:00)
[2021-09-07 17:00] VITALS: BP 135/80
[2021-09-07] MEDS ORDERED: PPN PER PHARMACY IV NR ×7 (20:00)
[2021-09-07 22:00] VITALS: BP 165/64
[2021-09-08] MEDS: LEVALBUTEROL HCL 1.25 MG/3 ML NEB NEB SCH ×5 (00:13→23:08)
[2021-09-08] MEDS: PANTOPRAZOLE 40 MG/10 ML VIAL INJ IV SCH ×2 (00:47→09:45)
[2021-09-08] MEDS: InsuLIN REG 1unit/0.01ml Soln (100units/ml) SC SCH ×4 (00:59→17:51)
[2021-09-08] MEDS: ACCU-CHEK COMFORT CURVE STRIP VI SCH ×4 (01:03→17:51)
[2021-09-08 05:00] VITALS: BP 174/72
[2021-09-08 05:42] LABS: Albumin 2.1 g/dL (3.4-5.0); BUN/Creatinine Ratio 33.9; Calcium 8.1 mg/dL (8.5-10.1); Magnesium 1.9 mg/dL (1.6-2.6)
[2021-09-08 05:45] LABS: Bilirubin, Total 0.3 mg/dL (0.2-1.0); Phosphorus 3.5 mg/dL (2.5-4.90); Total Protein 6.9 g/dL (6.4-8.2)
[2021-09-08] MEDS: MEROPENEM 1GM IVPB 100 ML IV SCH ×2 (06:26→18:43)
[2021-09-08] MEDS: LABETALOL HCL 5 MG/ML 4ML SYRINGE IV PRN ×2 (07:54→21:04)
[2021-09-08 08:42] LABS: Potassium 3.9 mmol/L (3.5-5.1)
[2021-09-08] MEDS: ENOXAPARIN SOD 40 MG/0.4 ML SYRINGE SC SCH (09:45)
[2021-09-08] MEDS: FLUCONAZOLE 200MG/100ML 100 ML IV SCH (09:45)
[2021-09-08] MEDS: VALSARTAN 80 MG TAB NG SCH (09:46)
[2021-09-08] MEDS: hydrALAZINE HCL 20 MG/ML VL IV PRN (10:49)
[2021-09-08] MEDS: ONDANSETRON HCL 4 MG/2 ML VIAL IV PRN (12:49)
[2021-09-08] MEDS: METOCLOPRAMIDE HCL 5MG/ml INJ 2ml VIAL IV PRN (18:54)
[2021-09-08] MEDS ORDERED: PPN PER PHARMACY IV NR ×7 (20:00)
[2021-09-08] MEDS: ENOXAPARIN SOD 80 MG/0.8ML SYRINGE SC SCH (21:03)
[2021-09-08 22:00] VITALS: BP 182/72
[2021-09-09] MEDS: ACCU-CHEK COMFORT CURVE STRIP VI SCH ×4 (00:20→18:00)
[2021-09-09] MEDS: hydrALAZINE HCL 20 MG/ML VL IV PRN ×2 (00:25→15:19)
[2021-09-09 05:00] VITALS: BP 172/62
[2021-09-09] MEDS: MEROPENEM 1GM IVPB 100 ML IV SCH ×2 (05:53→18:00)
[2021-09-09] MEDS: LABETALOL HCL 5 MG/ML 4ML SYRINGE IV PRN ×3 (05:53→22:00)
[2021-09-09] MEDS: InsuLIN REG 1unit/0.01ml Soln (100units/ml) SC SCH ×4 (05:54→18:00)
[2021-09-09] MEDS: LEVALBUTEROL HCL 1.25 MG/3 ML NEB NEB SCH ×3 (06:03→18:35)
[2021-09-09 06:08] LABS: Albumin 2.3 g/dL (3.4-5.0); Calcium 8.3 mg/dL (8.5-10.1); Magnesium 1.8 mg/dL (1.6-2.6); Phosphorus 3.1 mg/dL (2.5-4.90); Potassium 4.1 mmol/L (3.5-5.1)
[2021-09-09 06:11] LABS: BUN/Creatinine Ratio 42.9; Bilirubin, Total 0.3 mg/dL (0.2-1.0); Total Protein 7.3 g/dL (6.4-8.2)
[2021-09-09 09:00] VITALS: BP 186/70
[2021-09-09] MEDS: ENOXAPARIN SOD 80 MG/0.8ML SYRINGE SC SCH ×2 (10:00→21:09)
[2021-09-09] MEDS: VALSARTAN 80 MG TAB NG SCH (10:00)
[2021-09-09] MEDS: FLUCONAZOLE 200MG/100ML 100 ML IV SCH (10:00)
[2021-09-09] MEDS: PANTOPRAZOLE 40 MG/10 ML VIAL INJ IV SCH (10:00)
[2021-09-09 13:00] VITALS: BP 169/78
[2021-09-09] MEDS: METOCLOPRAMIDE HCL 5MG/ml INJ 2ml VIAL IV PRN (15:15)
[2021-09-09 17:00] VITALS: BP 164/77
[2021-09-09] MEDS ORDERED: TPN PER PHARMACY IV NR ×9 (20:00)
[2021-09-09] MEDS ORDERED: PPN PER PHARMACY IV NR ×9 (20:00)
[2021-09-09 22:00] VITALS: BP 175/69
[2021-09-10] MEDS: ACCU-CHEK COMFORT CURVE STRIP VI SCH ×2 (00:18→06:30)
[2021-09-10] MEDS: LEVALBUTEROL HCL 1.25 MG/3 ML NEB NEB SCH ×4 (00:40→18:28)
[2021-09-10] MEDS: METOCLOPRAMIDE HCL 5MG/ml INJ 2ml VIAL IV PRN ×3 (04:54→23:36)
[2021-09-10 05:17] VITALS: BP 156/68
[2021-09-10 05:58] LABS: Basophils # (auto) 0.1 10 ^3/uL (0-0.2); Eosinophils # (auto) 0.1 10 ^3/uL (0-0.8); Hemoglobin 7.3 g/dL (12.2-16.2); Monocytes # (auto) 0.6 10 ^3/uL (0-1.3); Red Cell Distribution Width 16.1 % (11.8-14.3); White Blood Cell 6.5 10^3/uL (4.4-10.8)
[2021-09-10] MEDS: InsuLIN REG 1unit/0.01ml Soln (100units/ml) SC SCH ×2 (06:00)
[2021-09-10 06:01] LABS: Eosinophils % (auto) 0.9 % (0.0-7.0); Hematocrit 21.9 % (36.0-46.0); Lymphocytes # (auto) 1.1 10 ^3/uL (0.4-5.4); Lymphocytes % (auto) 16.3 % (10.0-50.0); Mean Corpuscular Hemoglobin 28.7 pg (28.0-32.0); Mean Corpuscular Hgb Conc. 33.5 g/dL (32.0-36.0); Mean Corpuscular Volume 85.6 fL (80.0-100.0); Monocytes % (auto) 9.6 % (0.0-12.0); Neutrophils # (auto) 4.7 10 ^3/uL (1.6-8.6); Neutrophils % (auto) 72.2 % (37.0-80.0); Red Blood Cells 2.55 10^6/uL (4.0-5.20)
[2021-09-10 06:09] LABS: Potassium 4.6 mmol/L (3.5-5.1)
[2021-09-10 06:15] LABS: Albumin 2.2 g/dL (3.4-5.0); BUN/Creatinine Ratio 42.9; Bilirubin, Total 0.4 mg/dL (0.2-1.0); Calcium 8.7 mg/dL (8.5-10.1); Phosphorus 3.1 mg/dL (2.5-4.90); Pre Albumin 16.2 mg/dL (20.0-40.0); Total Protein 7.1 g/dL (6.4-8.2)
[2021-09-10] MEDS: MEROPENEM 1GM IVPB 100 ML IV SCH (06:30)
[2021-09-10] MEDS: hydrALAZINE HCL 20 MG/ML VL IV PRN ×2 (06:31→17:10)
[2021-09-10 09:00] VITALS: BP 183/84
[2021-09-10] MEDS: PANTOPRAZOLE 40 MG/10 ML VIAL INJ IV SCH (10:00)
[2021-09-10] MEDS: levoFLOXacin 500MG 100 ML IV SCH (10:00)
[2021-09-10] MEDS: VALSARTAN 80 MG TAB NG SCH (10:00)
[2021-09-10] MEDS ORDERED: Jevity 1.2 Cal/Fiber 1 Liter GT SCH (10:00)
[2021-09-10] MEDS ORDERED: APIXABAN 2.5 MG TAB PO SCH (10:00)
[2021-09-10] MEDS: FLUCONAZOLE 200MG/100ML 100 ML IV SCH (10:00)
[2021-09-10 13:00] VITALS: BP 176/82
[2021-09-10] MEDS: LABETALOL HCL 5 MG/ML 4ML SYRINGE IV PRN ×2 (14:00→23:03)
[2021-09-10 16:34] VITALS: BP 187/82
[2021-09-10 19:00] VITALS: BP 164/77
[2021-09-10] MEDS ORDERED: PPN PER PHARMACY IV NR ×8 (20:00)
[2021-09-10 21:00] VITALS: BP 171/82
[2021-09-10] MEDS: APIXABAN 2.5 MG TAB JT SCH (23:01)
[2021-09-11] MEDS: LEVALBUTEROL HCL 1.25 MG/3 ML NEB NEB SCH ×4 (00:28→21:05)
[2021-09-11] MEDS: LABETALOL HCL 5 MG/ML 4ML SYRINGE IV PRN (06:12)
[2021-09-11 06:45] LABS: Basophils # (auto) 0 10 ^3/uL (0-0.2); Basophils % (auto) 0.5 % (0.0-2.0); Eosinophils # (auto) 0.1 10 ^3/uL (0-0.8); Eosinophils % (auto) 1.2 % (0.0-7.0); Hematocrit 26.8 % (36.0-46.0); Hemoglobin 8.5 g/dL (12.2-16.2); Lymphocytes # (auto) 0.7 10 ^3/uL (0.4-5.4); Lymphocytes % (auto) 10.7 % (10.0-50.0); Mean Corpuscular Hemoglobin 27.4 pg (28.0-32.0); Mean Corpuscular Hgb Conc. 31.7 g/dL (32.0-36.0); Mean Corpuscular Volume 86.4 fL (80.0-100.0); Monocytes # (auto) 0.6 10 ^3/uL (0-1.3); Monocytes % (auto) 9.6 % (0.0-12.0); Neutrophils # (auto) 5.2 10 ^3/uL (1.6-8.6); Nucleated Red Blood Cells % 0.1 %; Red Cell Distribution Width 16.7 % (11.8-14.3); White Blood Cell 6.7 10^3/uL (4.4-10.8)
[2021-09-11 07:01] LABS: Potassium 4.4 mmol/L (3.5-5.1)
[2021-09-11 09:00] VITALS: BP 170/85
[2021-09-11] MEDS: PANTOPRAZOLE 40 MG/10 ML VIAL INJ IV SCH (09:07)
[2021-09-11] MEDS: FLUCONAZOLE 200MG/100ML 100 ML IV SCH (09:07)
[2021-09-11] MEDS: levoFLOXacin 500MG 100 ML IV SCH (09:07)
[2021-09-11] MEDS: VALSARTAN 80 MG TAB NG SCH (09:08)
[2021-09-11] MEDS: APIXABAN 2.5 MG TAB JT SCH ×2 (09:08→22:57)
[2021-09-11] MEDS ORDERED: amLODIPine BESYLATE 5 MG TAB JT SCH (10:00)
[2021-09-11] MEDS ORDERED: LABETALOL HCL 200 MG TAB PO ONE (10:15)
[2021-09-11] MEDS ORDERED: amLODIPine BESYLATE 5 MG TAB PO ONE (10:15)
[2021-09-11] MEDS ORDERED: Jevity 1.2 Cal/Fiber 1 Liter GT SCH (10:15)
[2021-09-11 13:00] VITALS: BP 159/78
[2021-09-11] MEDS: METOCLOPRAMIDE HCL 5MG/ml INJ 2ml VIAL IV PRN (13:57)
[2021-09-11 17:22] VITALS: BP 152/71
[2021-09-11 22:00] VITALS: BP 154/76
[2021-09-11] MEDS ORDERED: busPIRone HCL 10 MG TAB PO SCH (22:00)
[2021-09-11] MEDS ORDERED: busPIRone HCL 10 MG TAB JT SCH (22:00)
[2021-09-11] MEDS ORDERED: LABETALOL HCL 200 MG TAB PO SCH (22:00)
[2021-09-11] MEDS: LABETALOL HCL 200 MG TAB JT SCH (22:56)
[2021-09-12] MEDS: METOCLOPRAMIDE HCL 5MG/ml INJ 2ml VIAL IV PRN (03:04)
[2021-09-12] MEDS: ACETAMINOPHEN 325 MG TAB PO PRN (04:37)
[2021-09-12 05:00] VITALS: BP 141/73
[2021-09-12] MEDS: LEVALBUTEROL HCL 1.25 MG/3 ML NEB NEB SCH ×3 (06:46→19:19)
[2021-09-12 09:00] VITALS: BP 162/85
[2021-09-12] MEDS: APIXABAN 2.5 MG TAB JT SCH ×2 (10:00→22:00)
[2021-09-12] MEDS ORDERED: VALSARTAN 80 MG TAB JT SCH (10:00)
[2021-09-12] MEDS: amLODIPine BESYLATE 5 MG TAB JT SCH (10:00)
[2021-09-12] MEDS ORDERED: levoFLOXacin 500 MG TAB JT SCH (10:00)
[2021-09-12] MEDS ORDERED: FLUCONAZOLE 100 MG TAB PO SCH (10:00)
[2021-09-12] MEDS ORDERED: levoFLOXacin 500 MG TAB PO SCH (10:00)
[2021-09-12] MEDS: LABETALOL HCL 200 MG TAB JT SCH ×2 (10:00→22:00)
[2021-09-12] MEDS: PANTOPRAZOLE 40 MG/10 ML VIAL INJ IV SCH (10:53)
[2021-09-12] MEDS ORDERED: cloNIDine 0.3 mg/24hr 7DAY PATCH TD ONE (11:00)
[2021-09-12 13:00] VITALS: BP 157/72
[2021-09-12] MEDS ORDERED: GASTROGRAFIN 120 ML SOL ONE (13:27)
[2021-09-12] MEDS: levoFLOXacin 500MG 100 ML IV SCH (13:28)
[2021-09-12] MEDS: ONDANSETRON HCL 4 MG/2 ML VIAL IV PRN (15:43)
[2021-09-12 17:00] VITALS: BP 149/68
[2021-09-12 22:00] VITALS: BP 155/67
[2021-09-13 05:00] VITALS: BP 159/89
[2021-09-13] MEDS: LEVALBUTEROL HCL 1.25 MG/3 ML NEB NEB SCH ×5 (06:00→18:39)
[2021-09-13 09:00] VITALS: BP 158/91
[2021-09-13] MEDS: levoFLOXacin 500MG 100 ML IV SCH (09:14)
[2021-09-13] MEDS: PANTOPRAZOLE 40 MG/10 ML VIAL INJ IV SCH (09:14)
[2021-09-13] MEDS: MORPHINE SULFATE INJECTION 2 MG/ML SYRG IV PRN (09:16)
[2021-09-13] MEDS: APIXABAN 2.5 MG TAB JT SCH ×2 (10:00→22:00)
[2021-09-13] MEDS: LABETALOL HCL 200 MG TAB JT SCH ×2 (11:33→22:36)
[2021-09-13] MEDS: amLODIPine BESYLATE 5 MG TAB JT SCH (11:34)
[2021-09-13 13:00] VITALS: BP 160/74
[2021-09-13] MEDS: hydrALAZINE HCL 20 MG/ML VL IV PRN (14:39)
[2021-09-13 17:00] VITALS: BP 94/48
[2021-09-13 17:30] VITALS: BP 91/43
[2021-09-13 22:00] VITALS: BP 117/54
[2021-09-13] MEDS: ONDANSETRON HCL 4 MG/2 ML VIAL IV PRN (22:24)
[2021-09-13] MEDS: ACETAMINOPHEN 325 MG TAB PO PRN (22:26)
[2021-09-14] MEDS: METOCLOPRAMIDE HCL 5MG/ml INJ 2ml VIAL IV PRN (02:45)
[2021-09-14 05:00] VITALS: BP 100/50
[2021-09-14] MEDS: LEVALBUTEROL HCL 1.25 MG/3 ML NEB NEB SCH ×4 (07:06→18:44)
[2021-09-14] MEDS: PANTOPRAZOLE 40 MG/10 ML VIAL INJ IV SCH (08:44)
[2021-09-14] MEDS: levoFLOXacin 500MG 100 ML IV SCH (08:44)
[2021-09-14] MEDS: ONDANSETRON HCL 4 MG/2 ML VIAL IV PRN ×2 (08:55→23:57)
[2021-09-14 09:29] VITALS: BP 124/52
[2021-09-14] MEDS: APIXABAN 2.5 MG TAB JT SCH ×2 (10:00→22:42)
[2021-09-14] MEDS: LABETALOL HCL 200 MG TAB JT SCH ×2 (10:00→22:43)
[2021-09-14] MEDS: amLODIPine BESYLATE 5 MG TAB JT SCH (10:00)
[2021-09-14] MEDS ORDERED: HYDROCORTISONE ACET 25 MG RECTAL SUPP PR ONE (10:15)
[2021-09-14 18:00] VITALS: BP 104/50
[2021-09-14 22:00] VITALS: BP 112/56
[2021-09-14] MEDS: HYDROCORTISONE ACET 25 MG RECTAL SUPP PR SCH (22:44)
[2021-09-15] MEDS: LEVALBUTEROL HCL 1.25 MG/3 ML NEB NEB SCH ×3 (00:30→13:50)
[2021-09-15 05:00] VITALS: BP 117/74
[2021-09-15] MEDS: ONDANSETRON HCL 4 MG/2 ML VIAL IV PRN ×2 (05:29→14:16)
[2021-09-15] MEDS: ACETAMINOPHEN 325 MG TAB PO PRN ×2 (05:30→12:54)
[2021-09-15] MEDS: amLODIPine BESYLATE 5 MG TAB JT SCH (10:00)
[2021-09-15] MEDS: LABETALOL HCL 200 MG TAB JT SCH (10:00)
[2021-09-15] MEDS: levoFLOXacin 500MG 100 ML IV SCH (10:25)
[2021-09-15] MEDS: PANTOPRAZOLE 40 MG/10 ML VIAL INJ IV SCH (10:25)
[2021-09-15] MEDS: APIXABAN 2.5 MG TAB JT SCH (10:25)
[2021-09-15] MEDS: HYDROCORTISONE ACET 25 MG RECTAL SUPP PR SCH (10:27)
[2021-09-15] MEDS: METOCLOPRAMIDE HCL 5MG/ml INJ 2ml VIAL IV PRN (10:52)
[2021-09-15 15:00] VITALS: BP 116/95
[2021-09-15] MEDS ORDERED: NOREPINEPHRINE 8 MG/250ML KIT 250 ML IV ONE (15:11)
[2021-09-15] MEDS ORDERED: PHENYLEPHRINE IV 250 ML IV ONE (15:20)
[2021-09-15] MEDS ORDERED: SODIUM BICARBONATE 8.4 % INJ 50ML VIAL IV ONE (15:21)
[2021-09-15] MEDS ORDERED: VASOPRESSIN 20 UNIT/ML ONE (15:35)
[2021-09-15 15:45] VITALS: BP 83/36
[2021-09-15 16:15] VITALS: BP 106/52
[2021-09-15] MEDS ORDERED: MORPHINE SULFATE INJECTION 2 MG/ML SYRG ONE (16:15)
[2021-09-15] MEDS ORDERED: MORPHINE SULFATE INJECTION 2 MG/ML SYRG IV PRN (16:15)
[2021-09-15] MEDS ORDERED: EPINEPHrine HCL 1 MG/10 ML SYRG IV ONE ×2 (17:32→17:51)
[2021-09-15 17:51] VITALS: BP 57/31
[2021-09-15] MEDS ORDERED: DOPamine 1600mCg/ml 400MG/250ml NSorD5 KIT/BAG IV ONE (17:51)
[2021-09-19] MEDS ORDERED: cloNIDine 0.3 mg/24hr 7DAY PATCH TD SCH (10:00)
== END 2021-09-15 16:55 | DRG 344 ==
LOC: ER 11:51 → TELE 15:35 → TELE-WESTW 22:22 → PACU ICU 08-27 17:57 → ICU WEST 08-27 21:14 → TELE-CENTR 09-03 08:10 → ICU WEST 09-15 14:57
PROVIDERS: ADMIT Hospitalist; ATTEND Internal Medicine
PROC: 0B9F8ZZ Drainage of Right Lower Lung Lobe, Via Natural or Artificial Opening Endoscopic (ICD-10-PCS; 2021-08-27)
PROC: 5A1945Z Respiratory Ventilation, 24-96 Consecutive Hours (ICD-10-PCS; 2021-08-27)
PROC: 0BH17EZ Insertion of Endotracheal Airway into Trachea, Via Natural or Artificial Opening (ICD-10-PCS; 2021-08-27)
PROC: 0DB68ZX Excision of Stomach, Via Natural or Artificial Opening Endoscopic, Diagnostic (ICD-10-PCS; 2021-08-27)
PROC: 0BC68ZZ Extirpation of Matter from Right Lower Lobe Bronchus, Via Natural or Artificial Opening Endoscopic (ICD-10-PCS; 2021-08-27)
PROC: 0BCB8ZZ Extirpation of Matter from Left Lower Lobe Bronchus, Via Natural or Artificial Opening Endoscopic (ICD-10-PCS; 2021-08-27)
PROC: 30233N1 Transfusion of Nonautologous Red Blood Cells into Peripheral Vein, Percutaneous Approach (ICD-10-PCS; principal; 2021-08-27 14:42)
PROC: 0D9A00Z Drainage of Jejunum with Drainage Device, Open Approach (ICD-10-PCS; 2021-09-07)
PROC: 0BH17EZ Insertion of Endotracheal Airway into Trachea, Via Natural or Artificial Opening (ICD-10-PCS; 2021-09-15)
PROC: 5A12012 Performance of Cardiac Output, Single, Manual (ICD-10-PCS; 2021-09-15)
DX: C16.9 Malignant neoplasm of stomach, unspecified (principal); K29.71 Gastritis, unspecified, with bleeding; J96.01 Acute respiratory failure with hypoxia; A41.9 Sepsis, unspecified organism; G93.41 Metabolic encephalopathy; J69.0 Pneumonitis due to inhalation of food and vomit; R65.21 Severe sepsis with septic shock; N17.0 Acute kidney failure with tubular necrosis; K86.2 Cyst of pancreas; G45.9 Transient cerebral ischemic attack, unspecified; N39.0 Urinary tract infection, site not specified; I16.9 Hypertensive crisis, unspecified; D62 Acute posthemorrhagic anemia; D68.69 Other thrombophilia; K31.1 Adult hypertrophic pyloric stenosis; J98.11 Atelectasis; Z99.11 Dependence on respirator [ventilator] status; G82.20 Paraplegia, unspecified; G37.3 Acute transverse myelitis in demyelinating disease of central nervous system; I82.621 Acute embolism and thrombosis of deep veins of right upper extremity; C15.9 Malignant neoplasm of esophagus, unspecified; E78.5 Hyperlipidemia, unspecified; Z20.822 Contact with and (suspected) exposure to COVID-19; I48.0 Paroxysmal atrial fibrillation; I46.9 Cardiac arrest, cause unspecified; K86.9 Disease of pancreas, unspecified; E79.0 Hyperuricemia without signs of inflammatory arthritis and tophaceous disease; N18.9 Chronic kidney disease, unspecified; I12.9 Hypertensive chronic kidney disease with stage 1 through stage 4 chronic kidney disease, or unspecified chronic kidney disease; G62.9 Polyneuropathy, unspecified; F41.9 Anxiety disorder, unspecified; F32.9 Major depressive disorder, single episode, unspecified; F03.90 Unspecified dementia, unspecified severity, without behavioral disturbance, psychotic disturbance, mood disturbance, and anxiety; K21.00 Gastro-esophageal reflux disease with esophagitis, without bleeding; K59.00 Constipation, unspecified; M60.9 Myositis, unspecified; Z79.899 Other long term (current) drug therapy; Z86.718 Personal history of other venous thrombosis and embolism; Z86.74 Personal history of sudden cardiac arrest; Z88.0 Allergy status to penicillin; Z91.040 Latex allergy status; Z90.49 Acquired absence of other specified parts of digestive tract
CPT/HCPCS: 31720; 36415; 36600; 70450; 71045; 74018; 74176; 74183; 76775; 80048; 80053; 80076; 80307; 81001; 82040; 82306; 82570; 82805; 82962; 83036; 83540; 83550; 83735; 83880; 84100; 84156; 84300; 84443; 84478; 84484; 84550; 85007; 85014; 85018; 85025; 85027; 85610; 85730; 86301; 86850; 86900; 86901; 86902; 86922; 87040; 87070; 87077; 87081; 87086; 87186; 87205; 87426; 92610; 93005; 93306; 93970; 93971; 94002; 94003; 94640; 96361; 96365; 96375; 96376; 97163; C9113; G0378; J0171; J1100; J1450; J1815; J1885; J1956; J2001; J2185; J2248; J2250; J2405; J2704; J3480; J3490; J7042; J7060; J7131